=== PATIENT | male | born 1965 | race American Indian/Alaskan Native ===

== ENCOUNTER 2022-03-09 11:33 | Emergency (ER) | payer MEDICAID ==
[2022-03-09] MEDS ORDERED: HYDROcodone/ACETAMINOPHEN 5-325 MG TAB PO ONE (14:10)
[2022-03-09 15:54] LABS: Hematocrit 32.6 % (30.3-42.9); Hemoglobin 10.5 gm/dl (10.1-14.3); Mean Corpuscular HGB Conc 32 % (30-34); Mean Corpuscular Volume 92 fl (79-97); Platelet Count 155 K/mm3 (140-440); Red Blood Count 3.55 M/mm3 (3.65-5.03); Red Cell Distribution Width 17.6 % (13.2-15.2)
[2022-03-09 16:31] LABS: Albumin 4.4 g/dL (3.9-5); Blood Urea Nitrogen 53 mg/dL (7-17); Calcium 9.9 mg/dL (8.4-10.2); Hemolysis Index 63
[2022-03-09 16:33] LABS: Basophils % (Manual) 0 % (0.0-1.8); Total Cells Counted 100
[2022-03-09 16:38] LABS: Anisocytosis Few; Poikilocytosis 1+
[2022-03-09 16:39] LABS: Hypochromasia Few; Large Platelets Rare; Ovalocytes Rare; Platelet Estimate Consistent w Auto; Stomatocytes Rare; Tear Drop Cells Few
[2022-03-09 16:56] LABS: Alanine Aminotransferase < 5 units/L (7-56); BUN/Creatinine Ratio 3; Bilirubin,Direct < 0.2 mg/dL (0-0.2)
--- NOTE | 2022-03-09 17:19 | Emergency Department Report ---
ED Abdominal Pain HPI - General Chief Complaint: Abdominal Pain Stated Complaint: ABD PAIN Time Seen by Provider: 03/09/22 13:38 Source: patient, EMS Mode of arrival: Stretcher Limitations: Physical Limitation - History of Present Illness Initial Comments: Patient is a 56-year-old male with history of end-stage renal disease on dialysis presenting to ED with complaint of upper abdominal pain, back pain and right shoulder pain. States he has history of lupus. He also reports that he was at dialysis today and was told his hemoglobin was 7, down from 9 and that he needed a blood transfusion. Severity scale (0 -10): 10 - Related Data Allergies Allergy/AdvReac Type Severity Reaction Status Date / Time No Known Allergies Allergy Unverified 03/09/22 12:05 ED Review of Systems ROS: Stated complaint: ABD PAIN Other details as noted in HPI Comment: All other systems reviewed and negative Constitutional: denies: chills, fever Respiratory: denies: cough, shortness of breath, wheezing Cardiovascular: denies: chest pain, palpitations Gastrointestinal: abdominal pain. denies: nausea, vomiting Musculoskeletal: back pain, arthralgia Skin: denies: rash, lesions Neurological: denies: headache, weakness, paresthesias Psychiatric: denies: anxiety, depression ED Past Medical Hx - Social History Smoking Status: Current Every Day Smoker ED Physical Exam - General Limitations: Physical Limitation General appearance: alert, in no apparent distress - Head Head exam: Present: atraumatic, normocephalic - Neck Neck exam: Present: normal inspection. Absent: tenderness - Respiratory Respiratory exam: Present: normal lung sounds bilaterally, respiratory distress - Cardiovascular Cardiovascular Exam: Present: regular rate, normal rhythm, normal heart sounds - GI/Abdominal GI/Abdominal exam: Present: soft. Absent: distended, tenderness - Rectal Rectal exam: Present: deferred - Neurological Exam Neurological exam: Present: alert, oriented X3 - Psychiatric Psychiatric exam: Present: normal affect, normal mood - Skin Skin exam: Present: warm, dry, intact, normal color ED Course Vital Signs 03/09/22 03/09/22 03/09/22 12:02 13:41 13:42 Temperature 98.7 F Pulse Rate 80 73 Respiratory 18 20 Rate Blood Pressure 180/100 196/94 [Left] O2 Sat by Pulse 99 100 98 Oximetry ED Medical Decision Making - Lab Data Result diagrams: 03/09/22 15:08 03/09/22 15:08 - Medical Decision Making Hemoglobin 10. Patient does not require blood transfusion I discussed results with him. Remaining labs grossly unremarkable aside from creatinine and BUN which is expected given patient's history of end-stage renal disease. He is stable for discharge home with return precautions. Critical care attestation.: If time is entered above; I have spent that time in minutes in the direct care of this critically ill patient, excluding procedure time. ED Disposition Clinical Impression: Pain of multiple sites, Lupus, Abdominal pain Disposition: HOME / SELF CARE / HOMELESS Is pt being admited?: No Condition: Stable Instructions: Abdominal Pain (ED), Acute Pain, Adult, Abdominal Pain, Adult, Musculoskeletal Pain Referrals: LESLIE PIRES MD [Primary Care Provider] - 3-5 Days Time of Disposition: 17:30
[2022-03-09 19:48] VITALS: BP 180/76
== END 2022-03-09 19:48 | disposition home or self-care (01) ==
LOC: EDSEX → ED 11:33
DX: R10.10 Upper abdominal pain, unspecified (principal); F17.200 Nicotine dependence, unspecified, uncomplicated
CPT/HCPCS: 36415; 80048; 80076; 83690; 85007; 85025; 99283; 99284